=== PATIENT | male | born 1995 ===

== ENCOUNTER 2023-10-28 18:35 | Outpatient (REF) | payer BC, SELFPAY ==
[2023-10-28 21:33] LABS: ALT 37 U/L (16-63); AST 28 U/L (15-37); Albumin 4.3 g/dL (3.4-5.0); Alkaline Phosphatase 68 U/L (46-116); Anion Gap 5.5 mmol/L (3-11); BUN 14 mg/dL (7-18); Bilirubin, Total 0.3 mg/dL (0.2-1.0); CO2 31.5 mmol/L (21.0-32.0); CREATININE 1.1 mg/dL (0.70-1.30); Calcium 8.9 mg/dL (8.5-10.1); Chloride 104 mmol/L (98-107); Estimated GFR 94.36 (mL/min/1.73m2); Glucose 99 mg/dL (74-106); Potassium 3.8 mmol/L (3.5-5.1); Sodium 141 mmol/L (136-145); Total Protein 7.4 g/dL (6.4-8.2)
[2023-10-29 19:29] LABS: Hepatitis C Ab w Rflx HCV PCR Negative (Negative)
[2023-10-29 19:34] LABS: HIV-1/2 Ag & Ab Screen Negative (Negative)
[2023-10-30 12:28] LABS: Chlamydia Result Negative (Negative); GC Result Negative (Negative)
== END 2023-10-28 18:36 | disposition home or self-care (01) ==
LOC: NCHCN 18:35
PROVIDERS: Visit Provider Family Medicine
DX: F10.10 Alcohol abuse, uncomplicated (principal); Z11.3 Encounter for screening for infections with a predominantly sexual mode of transmission
CPT/HCPCS: 80053; 86803; 87389; 87491; 87591